=== PATIENT | male | born 1960 | race Caucasian/White ===

== ENCOUNTER → 2017-12-28 | Outpatient (CLI) | payer BC, OTHER | LOC: RAD 15:26 | DX: M25.551 Pain in right hip (principal) ==

== ENCOUNTER → 2020-01-15 | Outpatient (CLI) | payer OTHER | LOC: CAT 09:15 | PROVIDERS: ATTEND Family Medicine | DX: Z12.2 Encounter for screening for malignant neoplasm of respiratory organs (principal); J43.9 Emphysema, unspecified; J98.4 Other disorders of lung; J84.10 Pulmonary fibrosis, unspecified; M47.9 Spondylosis, unspecified; N62 Hypertrophy of breast; R19.8 Other specified symptoms and signs involving the digestive system and abdomen; Z87.891 Personal history of nicotine dependence ==

== ENCOUNTER → 2020-12-16 | Outpatient (CLI) | payer OTHER ==
[~2020-12-16] MED LIST: ASA81BEC PO; DUREZOL5 ML OPHTHALMIC; GLIPIZIDE 10 MG10 MG PO; GLUMETZA1000 PO; HYDROCHLOROTH12.5 M2 PO; KETOROLAC 0.5% E5 ML OPHTHALMIC; LIPITOR 20 MG T20 M1 PO; LOSARTAN POTASS50 MG PO; LYRICA150 MG PO; OMEPRAZOLE 20 M20 M1 PO; PROAIR DIGIHAL90 MCG INH; SYMBICORT160 MCG/4. INH
== END ==
LOC: LAB 07:31
PROVIDERS: ATTEND Student in an Organized Health Care Education/Training Program
DX: Z01.812 Encounter for preprocedural laboratory examination (principal); Z20.822 Contact with and (suspected) exposure to COVID-19

== ENCOUNTER → 2020-12-18 | Outpatient (CLI) | payer OTHER ==
[~2020-12-18] VITALS: Ht 180.3 cm; Wt 86.2 kg
--- NOTE | 2020-12-18 16:10 | P ---
[facility] [place] [id number] PROCEDURE REPORT Name: MARIKA ONRTON Room #: REG CLARENCE NietoJovanniBrunildaJovanni#: [id number] Admission: 12/18/20 Attend Phys: Ez Martinez Discharge: Date of : 60 Report #: [id number] THIS REPORT FOR: cc: Ricardo Jimenez MD, Rene P. MD McElhinney, Christian C. MD ~ cc: Ricardo Jimenez MD DATE OF SERVICE: 12/18/2020 PROCEDURE PERFORMED: Colonoscopy. HISTORY OF PRESENT ILLNESS: The patient is a 60-year-old male who has a previous history of colon polyps 5 years ago, here for routine followup. Denies any symptoms, no family history of colon cancer. DESCRIPTION OF PROCEDURE: The risks and benefits of the procedure were explained to the patient, those risks including but not limited to bleeding, perforation and the risk of sedation. He understood these risks and gave informed consent. Sedation was given using propofol per anesthesia. Next, a digital rectal exam was initially performed, which was normal. Next, using a standard Olympus colonoscope, the scope was placed in the patient's anus and advanced under direct vision to the cecum. The overall prep was good. The cecum and ileocecal valve were normal in appearance. The ascending, transverse, descending and sigmoid colon were all normal. The rectal mucosa was normal. On retroflexion, no abnormalities were noted. The scope was then withdrawn and the procedure terminated. The patient tolerated the procedure well. IMPRESSION: Normal colonoscopy. RECOMMENDATIONS: Repeat colonoscopy in 10 years. Thank you for allowing me to participate in his care. <ELECTRONICALLY SIGNED> By: Ez Bazzi MD 12/18/20 [id number] [id number] Ez Bazzi MD /nt
== END | disposition home or self-care (01) ==
LOC: GI
PROVIDERS: ATTEND Specialist
DX: Z12.11 Encounter for screening for malignant neoplasm of colon (principal); Z86.010 Personal history of colon polyps; I10 Essential (primary) hypertension; E11.9 Type 2 diabetes mellitus without complications; J43.9 Emphysema, unspecified; E78.00 Pure hypercholesterolemia, unspecified; F17.210 Nicotine dependence, cigarettes, uncomplicated; K21.9 Gastro-esophageal reflux disease without esophagitis; Z98.890 Other specified postprocedural states; Z79.899 Other long term (current) drug therapy; Z96.642 Presence of left artificial hip joint
CPT/HCPCS: 62110; 62900

== ENCOUNTER → 2021-02-05 | Outpatient (CLI) | payer OTHER | LOC: CAT 12:50 | PROVIDERS: ATTEND Family Medicine | DX: Z12.2 Encounter for screening for malignant neoplasm of respiratory organs (principal); Z87.891 Personal history of nicotine dependence ==

== ENCOUNTER → 2021-04-24 | Outpatient (CLI) | payer OTHER | LOC: SJCVCIMAG 04-04 07:23 | PROVIDERS: ATTEND Internal Medicine | DX: I51.89 Other ill-defined heart diseases (principal); R06.02 Shortness of breath; J44.9 Chronic obstructive pulmonary disease, unspecified ==

== ENCOUNTER → 2021-04-25 | Outpatient (CLI) | payer OTHER | LOC: CAT 08:54 | PROVIDERS: ATTEND Internal Medicine | DX: Z13.6 Encounter for screening for cardiovascular disorders (principal); I25.10 Atherosclerotic heart disease of native coronary artery without angina pectoris; E78.00 Pure hypercholesterolemia, unspecified ==

== ENCOUNTER → 2021-04-28 | Outpatient (CLI) | payer OTHER | LOC: SJCVCIMAG 07:11 | PROVIDERS: ATTEND Internal Medicine | DX: R06.00 Dyspnea, unspecified (principal); R94.31 Abnormal electrocardiogram [ECG] [EKG]; J45.909 Unspecified asthma, uncomplicated; I10 Essential (primary) hypertension; E11.9 Type 2 diabetes mellitus without complications; F17.210 Nicotine dependence, cigarettes, uncomplicated; Z72.89 Other problems related to lifestyle; Z79.82 Long term (current) use of aspirin; Z79.84 Long term (current) use of oral hypoglycemic drugs; Z79.899 Other long term (current) drug therapy ==